=== PATIENT | female | born 1995 | race Caucasian/White ===

== ENCOUNTER 2021-05-10 10:50 | Emergency (ER) | payer SELFPAY | END 2021-05-10 12:11 | disposition left against medical advice (07) | LOC: EMS 10:53 | DX: R10.9 Unspecified abdominal pain (principal); Z53.21 Procedure and treatment not carried out due to patient leaving prior to being seen by health care provider ==

== ENCOUNTER 2022-09-08 01:14 | Emergency (ER) | payer OTHER ==
[~2022-09-08] VITALS: Ht 162.6 cm; Wt 52.3 kg
[2022-09-08 01:59] VITALS: BP 108/70
== END 2022-09-08 03:05 | disposition left against medical advice (07) ==
LOC: EMS 01:14
DX: S01.111A Laceration without foreign body of right eyelid and periocular area, initial encounter (principal); Z53.21 Procedure and treatment not carried out due to patient leaving prior to being seen by health care provider; W10.8XXA Fall (on) (from) other stairs and steps, initial encounter; Y93.01 Activity, walking, marching and hiking; Y92.89 Other specified places as the place of occurrence of the external cause; Y99.8 Other external cause status